=== PATIENT | female | born 1960 | race Caucasian/White ===

== ENCOUNTER → 2018-03-26 06:50 | Day surgery (SDC) | payer BC ==
[~2018-03-26 06:50] MED LIST: Acetaminophen TAB* 325 MG PO PRN; Buffered Lidocaine 0.9% SYRIN* 5 ML/SYR SYRINGE INTRADERM ONE; Bupivacaine 0.25% SDV* 30 ML ONE; Bupivacaine 0.5% W/EPI SDV* 30 ML VIAL ONE; Dexamethasone IV* 4 MG/ML 1 ML (4 MG) ONE; DiMENhydriNATE IV* 50 MG/ML VIAL IV PUSH PRN; Famotidine IV* 10 MG/ML 2 ML (20 mg) ONE; Ketorolac INJ* 30 MG/ML 1 ML VIAL ONE; Lidocain 1% EPI 1:100,000 * 30 ML MDV ONE; Lidocaine 1% INJ* 10 MG/ML 30 ML SDV ONE; Lidocaine 2% PF * 5 ML VIAL ONE; Lidocaine 2.5%/Prilocain 2.5%* 5 GM TUBE ONE; Methylene Blue 0.5 %* 50 MG/10 ML AMP IV ONE; Midazolam* 1 MG/ML 2 ML VIAL (2 MG) ONE; Mineral Oil Sterile, TOPICAL* 25 ML BTL ONE; Naloxone* 0.4 MG/ML 1 ML VIAL IV PRN; PROCHLORPERAZINE INJ 5 MG/ML 2 ML VIAL IV PRN; PROCHLORPERAZINE INJ 5 MG/ML 2 ML VIAL ONE; Propofol* 10 MG/ML 20 ML BTL IV PUSH ONE; Scopolamine 1.5 mg* PATCH TRANSDERM PRN; Scopolamine PATCH Remove* 1 NOTE MISC PATCH OFF ONE; ceFAZolin 2 GM PREMIX in ORs 2 GM/50 ML BAG IVPB ONE; fentaNYL* 50 MCG/ML 2 ML VIAL (100 MCG VIAL) IV PRN; fentaNYL* 50 MCG/ML 2 ML VIAL (100 MCG VIAL) ONE
[2018-03-26 14:33] VITALS: BP 102/65
--- NOTE | 2018-03-26 14:54 | RAD ---
Indication: Right breast cancer. Using usual aseptic technique and lidocaine as a local anesthetic a 7 cm needle was placed adjacent to the radiopaque marker that was replaced with prior calcifications are present. Using a medial lateral approach the guidewire was localized. Patient tolerated procedure well. Specimen radiograph demonstrates the localized clip to be within the specimen. IMPRESSION: Successful mammographic guided localization of a radiopaque marker right breast.
--- NOTE | 2018-03-27 02:36 | OP ---
CC: Dr. Jeanette Leyva; [facility] * DATE OF OPERATION: 03/26/18 - [facility] DATE OF : 64 SURGEON: Silverio Bergeron MD FLORIST DESIGNER: None. ANESTHESIOLOGIST: Dr. Arias ANESTHESIA: LMAC. 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 POST-OP DIAGNOSIS: Ductal carcinoma in situ of right breast. OPERATIVE PROCEDURE: Needle localizing wide excision of DCIS of right breast. DESCRIPTION OF PROCEDURE: The patient was supine on the operating room table. After adequate intravenous sedation, compression stockings, [place] Hugger warmer, and intravenous antibiotics, the right breast was prepped with antiseptic and draped in a sterile fashion. Local infiltrative anesthesia was administered and approximately 6-cm incision was created extending lateral from the wire. A piece of breast tissue approximately 4 x 4 x 6 cm was removed. The guidewire stuck out at the very lateral aspect of this, so a little piece of tissue was taken off the lateral aspect as well. The first piece of tissue was labeled the right breast excision and was sent with the usual marking sutures, fresh to Radiology, which confirmed excision of the lesion. The second piece was labeled additional lateral tissue with suture marking to margin and this was sent in formalin. Hemostasis was obtained using cautery or suture where appropriate and closure was accomplished using 3-0 and 5-0 Vicryl, followed by Steri-Strips. She tolerated the procedure well, was awakened and brought to Recovery in good condition. No complications, no drains. Pathologic specimens as above. Sponge and instrument counts correct. Estimated blood loss 25 mL. [id number]/[facility] #: [id number] [facility]
== END | disposition home or self-care (01) ==
LOC: SDS 06:50
PROVIDERS: ATTEND Surgery
DX: D05.11 Intraductal carcinoma in situ of right breast (principal); Z87.891 Personal history of nicotine dependence; R00.1 Bradycardia, unspecified
CPT/HCPCS: 88307; A9270-GY; J0690; J0780; J1100; J1885; J2250; J2704; J3010